=== PATIENT | female | born 1940 | race Caucasian/White ===

== ENCOUNTER 2017-12-21 06:21 | Emergency (ER) | payer MEDICARE, OTHER, MEDICAID ==
[2017-12-21 06:48] LABS: ADD MAN DIFF? NO
[2017-12-21] MEDS: ONDANSETRON 4 MG INJ IV (06:50)
[2017-12-21] MEDS: FAMOTIDINE 20 MG INJ IV (06:50)
[2017-12-21 06:53] LABS: WHITE BLOOD COUNT 8.9 10^3/ul (4.8-10.8)
[2017-12-21 06:53] LABS: BASOPHILS % 0.2 % (0.0-2.0); HEMATOCRIT 45.4 % (37.0-47.0); HEMOGLOBIN 15.1 g/dl (12.0-16.0); LYMPHOCYTES # 0.7 10^3/ul (0.8-2.9); LYMPHOCYTES % 7.7 % (15.0-51.0); MEAN CORPUSCULAR HEMOGLOBIN 27.8 pg (29.0-33.0); MEAN CORPUSCULAR HGB CONC 33.3 g/dl (32.0-37.0); MEAN CORPUSCULAR VOLUME 83.6 fl (82.0-101.0); MEAN PLATELET VOLUME 9.9 fl (7.4-10.4); MONOCYTE # 0.2 10^3/ul (0.3-0.9); MONOCYTES % 2.5 % (0.0-11.0); NEUTROPHILS % 89.3 % (39.0-77.0); PLATELET COUNT 236 10^3/UL (140-415); RED BLOOD COUNT 5.43 10^6/ul (4.20-5.40); RED CELL DISTRIBUTION WIDTH 12.8 % (11.5-14.5)
[2017-12-21 07:13] LABS: ALANINE AMINOTRANSFERASE 18 IU/L (13-69); ALBUMIN/GLOBULIN RATIO 1.06; ALKALINE PHOSPHATASE 94 IU/L (42-121); ANION GAP 17 (8-16); ASPARTATE AMINO TRANSFERASE 36 IU/L (15-46); BILIRUBIN,INDIRECT 0.4 mg/dl (0-1.1); BILIRUBIN,TOTAL 0.4 mg/dl (0.2-1.3); BLOOD UREA NITROGEN 16 mg/dl (7-20); CALCIUM 9.5 mg/dl (8.4-10.2); CARBON DIOXIDE 25 mmol/L (21-31); CHLORIDE 104 mmol/L (97-110); CREATININE 0.52 mg/dl (0.44-1.00); GLUCOSE 173 mg/dl (70-220); LIPASE 120 U/L (23-300); POTASSIUM 4.4 mmol/L (3.5-5.1); SODIUM 142 mmol/L (135-144); TOTAL PROTEIN 9.7 g/dl (6.1-8.1)
== END 2017-12-21 07:47 | disposition home or self-care (01) ==
LOC: E/R 06:21
DX: R10.13 Epigastric pain (principal); I10 Essential (primary) hypertension; I25.10 Atherosclerotic heart disease of native coronary artery without angina pectoris; R11.10 Vomiting, unspecified
CPT/HCPCS: 36415; 80053; 83690; 85025; 96374; 96375; 99284-25